=== PATIENT | female | born 2000 | race Caucasian/White ===

== ENCOUNTER 2021-11-15 01:54 | Emergency (ER) | payer OTHER ==
[2021-11-15 02:19] VITALS: TEMP 97.9
[2021-11-15] MEDS ORDERED: ONDANSETRON 4 MG/2 ML VIAL IVP STA (02:41)
[2021-11-15] MEDS ORDERED: SODIUM CHLORIDE 0.9% 1,000 ML IV STA (02:41)
[2021-11-15] MEDS ORDERED: MORPHINE SULFATE 4 MG/ML SYRINGE IV STA (02:41)
--- NOTE | 2021-11-15 02:46 | ED ---
General Adult HPI - General Chief complaint: Abdominal Pain Stated complaint: LRQ Abd Pain Time Seen by Provider: 11/15/21 02:35 Source: patient, RN notes reviewed, old records reviewed Mode of arrival: ambulatory - History of Present Illness Initial comments: 21-year-old female presents with right-sided abdominal pain since 4:30 yesterday afternoon. Patient states that pain seems. Sharp in nature in the middle of the night waking her. She states that she has nausea but no vomiting. She is having diarrhea recently had a cholecystectomy last month and was told that would be normal. She denies any dysuria bleeding or discharge -: hour(s) (10) Location: abdomen (right upper and lower ) Radiation: non-radiation Severity scale (1-10): 8 Quality: stabbing, sharp Consistency: intermittent Improves with: none Associated Symptoms: nausea/vomiting (no vomiting) - Related Data Allergies Allergy/AdvReac Type Severity Reaction Status Date / Time sulfamethoxazole Allergy Unknown Verified 11/15/21 02:19 [From Bactrim] Childhood trimethoprim [From Bactrim] Allergy Unknown Verified 11/15/21 02:19 Childhood methylphenidate AdvReac Rapid Verified 11/15/21 02:19 [From Concerta] Heart Rate Review of Systems ROS Statement: Those systems with pertinent positive or pertinent negative responses have been documented in the HPI. ROS Other: All systems not noted in ROS Statement are negative. Past Medical History Past Medical History: No Reported History History of Any Multi-Drug Resistant Organisms: None Reported Past Surgical History: Section, Cholecystectomy Additional Past Surgical History / Comment(s): c section x 2 and reconstructive surgery on her uterus. Past Psychological History: No Psychological Hx Reported Smoking Status: Never smoker Past Alcohol Use History: None Reported Past Drug Use History: None Reported General Exam General appearance: alert, in no apparent distress Head exam: Present: atraumatic Eye exam: Absent: scleral icterus, conjunctival injection Respiratory exam: Present: normal lung sounds bilaterally. Absent: respiratory distress, accessory muscle use Cardiovascular Exam: Present: regular rate. Absent: JVD GI/Abdominal exam: Present: soft, tenderness (Right upper and right lower quadrant), other (Cholecystectomy incisions intact with no erythema or drainage). Absent: distended Extremities exam: Present: normal inspection, normal capillary refill. Absent: pedal edema Back exam: Present: normal inspection, full ROM. Absent: tenderness, CVA tenderness (R), CVA tenderness (L), rash noted Neurological exam: Present: alert, oriented X3 Psychiatric exam: Present: normal affect, normal mood Skin exam: Present: warm, dry, intact, normal color. Absent: rash, cyanosis, diaphoretic, pallor Course Vital Signs 11/15/21 02:14 Temperature 97.9 F Pulse Rate 97 Respiratory 19 Rate Blood Pressure 113/71 O2 Sat by Pulse 98 Oximetry Medical Decision Making - Medical Decision Making Patient presents with right-sided abdominal pain that started yesterday afternoon. She underwent a cholecystectomy one month ago at [facility]. She denies any fevers, nausea, vomiting or diarrhea. There is no evidence of leukocytosis. Hemoglobin and hematocrit are stable electrolytes are unremarkable. No lactic acidosis. No UTI and no evidence of . Abdominal x-ray shows nonacute abdomen, no intestinal obstruction or pneumoperitoneum. Cholecystectomy clips are noted. Patient was given IV fluids and morphine. She states that the pain is improved. Upon reassessment abdomen remains soft and minimally tender in the right upper quadrant. I feel the patient is stable for discharge. She was given strict return parameters to return if fevers, increasing pain, persistent nausea vomiting. She is agreeable to this plan of care. Case discussed with Dr. Rock. Vital signs are stable. - Lab Data Result diagrams: 11/15/21 02:59 11/15/21 02:59 Lab Results 11/15/21 11/15/21 11/15/21 Range/Units 02:59 02:59 02:59 WBC 8.9 (3.8-10.6) k/uL RBC 4.64 (3.80-5.40) m/uL Hgb 13.4 (11.4-16.0) gm/dL Hct 41.3 (34.0-46.0) % MCV 89.0 (80.0-100.0) fL MCH 28.8 (25.0-35.0) pg MCHC 32.4 (31.0-37.0) g/dL RDW 12.6 (11.5-15.5) % Plt Count 300 (150-450) k/uL MPV 6.7 Neutrophils % 61 % Lymphocytes % 25 % Monocytes % 6 % Eosinophils % 5 % Basophils % 1 % Neutrophils # 5.5 (1.3-7.7) k/uL Lymphocytes # 2.2 (1.0-4.8) k/uL Monocytes # 0.6 (0-1.0) k/uL Eosinophils # 0.5 (0-0.7) k/uL Basophils # 0.1 (0-0.2) k/uL Sodium 137 (137-145) mmol/L Potassium 3.6 (3.5-5.1) mmol/L Chloride 106 (98-107) mmol/L Carbon Dioxide 24 (22-30) mmol/L Anion Gap 7 mmol/L BUN 9 (7-17) mg/dL Creatinine 0.56 (0.52-1.04) mg/dL Est GFR (CKD-EPI)AfAm >90 (>60 ml/min/1.73 sqM) Est GFR (CKD-EPI)NonAf >90 (>60 ml/min/1.73 sqM) Glucose 99 (74-99) mg/dL Plasma Lactic Acid Damian (0.7-2.0) mmol/L Calcium 8.4 (8.4-10.2) mg/dL Total Bilirubin 0.5 (0.2-1.3) mg/dL AST 19 (14-36) U/L ALT 19 (4-34) U/L Alkaline Phosphatase 57 (38-126) U/L Total Protein 6.4 (6.3-8.2) g/dL Albumin 3.7 (3.5-5.0) g/dL Amylase 40 (30-110) U/L Lipase 94 (23-300) U/L Urine Color Yellow Urine Appearance Cloudy H (Clear) Urine pH 6.5 (5.0-8.0) Ur Specific [place] 1.022 (1.001-1.035) Urine Protein Negative (Negative) Urine Glucose (UA) Negative (Negative) Urine Ketones Negative (Negative) Urine Blood Negative (Negative) Urine Nitrite Negative (Negative) Urine Bilirubin Negative (Negative) Urine Urobilinogen <2.0 (<2.0) mg/dL Ur Leukocyte Esterase Trace H (Negative) Urine RBC 1 (0-5) /hpf Urine WBC 3 (0-5) /hpf Ur Squamous Epith Cells 25 H (0-4) /hpf Urine Bacteria Rare H (None) /hpf Urine Mucus Rare H (None) /hpf Urine HCG, Qual (Not Detectd) 11/15/21 11/15/21 Range/Units 02:59 02:59 WBC (3.8-10.6) k/uL RBC (3.80-5.40) m/uL Hgb (11.4-16.0) gm/dL Hct (34.0-46.0) % MCV (80.0-100.0) fL MCH (25.0-35.0) pg MCHC (31.0-37.0) g/dL RDW (11.5-15.5) % Plt Count (150-450) k/uL MPV Neutrophils % % Lymphocytes % % Monocytes % % Eosinophils % % Basophils % % Neutrophils # (1.3-7.7) k/uL Lymphocytes # (1.0-4.8) k/uL Monocytes # (0-1.0) k/uL Eosinophils # (0-0.7) k/uL Basophils # (0-0.2) k/uL Sodium (137-145) mmol/L Potassium (3.5-5.1) mmol/L Chloride (98-107) mmol/L Carbon Dioxide (22-30) mmol/L Anion Gap mmol/L BUN (7-17) mg/dL Creatinine (0.52-1.04) mg/dL Est GFR (CKD-EPI)AfAm (>60 ml/min/1.73 sqM) Est GFR (CKD-EPI)NonAf (>60 ml/min/1.73 sqM) Glucose (74-99) mg/dL Plasma Lactic Acid Damian 0.7 (0.7-2.0) mmol/L Calcium (8.4-10.2) mg/dL Total Bilirubin (0.2-1.3) mg/dL AST (14-36) U/L ALT (4-34) U/L Alkaline Phosphatase (38-126) U/L Total Protein (6.3-8.2) g/dL Albumin (3.5-5.0) g/dL Amylase (30-110) U/L Lipase (23-300) U/L Urine Color Urine Appearance (Clear) Urine pH (5.0-8.0) Ur Specific [place] (1.001-1.035) Urine Protein (Negative) Urine Glucose (UA) (Negative) Urine Ketones (Negative) Urine Blood (Negative) Urine Nitrite (Negative) Urine Bilirubin (Negative) Urine Urobilinogen (<2.0) mg/dL Ur Leukocyte Esterase (Negative) Urine RBC (0-5) /hpf Urine WBC (0-5) /hpf Ur Squamous Epith Cells (0-4) /hpf Urine Bacteria (None) /hpf Urine Mucus (None) /hpf Urine HCG, Qual Not Detected (Not Detectd) Disposition Clinical Impression: Abdominal pain Disposition: HOME SELF-CARE Condition: Good Instructions (If sedation given, give patient instructions): Abdominal Pain (ED) Additional Instructions: Return to the emergency room with any new or worsening symptoms including increased right lower quadrant abdominal pain, fevers, persistent nausea or vomiting. Follow-up with your primary care doctor next week. Increase your fluid intake. You can try Gas-X in addition to Tylenol and Motrin for your pain. Is patient prescribed a controlled substance at d/c from ED?: No Referrals: Nonstaff,Physician [Primary Care Provider] - 1-2 days Time of Disposition: 03:53
[2021-11-15 03:08] LABS: Basophils # (A) 0.1 k/uL (0-0.2); Basophils % (A) 1 %; Eosinophils # (A) 0.5 k/uL (0-0.7); Eosinophils % (A) 5 %; HCT 41.3 % (34.0-46.0); HGB 13.4 gm/dL (11.4-16.0); Lymphocytes # (A) 2.2 k/uL (1.0-4.8); Lymphocytes % (A) 25 %; MCH 28.8 pg (25.0-35.0); MCHC 32.4 g/dL (31.0-37.0); Mean Platelet Volume 6.7; Monocytes # (A) 0.6 k/uL (0-1.0); Monocytes % (A) 6 %; Neutrophils # (A) 5.5 k/uL (1.3-7.7); Neutrophils % (A) 61 %; Platelet Count 300 k/uL (150-450); RBC 4.64 m/uL (3.80-5.40); RDW 12.6 % (11.5-15.5); WBC 8.9 k/uL (3.8-10.6)
--- NOTE | 2021-11-15 03:12 | XR ---
EXAMINATION TYPE: XR KUB DATE OF EXAM: 11/15/2021 COMPARISON: NONE HISTORY: Right lower quadrant pain TECHNIQUE: 2 views Upright FINDINGS: Bowel gas pattern is normal. There is no sign of intestinal obstruction or pneumoperitoneum . There are clips from cholecystectomy. Lung bases are clear. There are no pathologic calcifications. IMPRESSION: Acute abdomen.
[2021-11-15 03:17] LABS: Appearance,Urine Cloudy (Clear); Bacteria,Urine Rare /hpf; Bilirubin,Urine Negative (Negative); Blood,Urine Negative (Negative); Color,Urine Yellow; Glucose,Urine (UA) Negative (Negative); Ketones,Urine Negative (Negative); Leukocyte Esterase,Urine Trace (Negative); Mucus,Urine Rare /hpf; Nitrite,Urine Negative (Negative); PH, Urine 6.5 (5.0-8.0); Protein,Urine Negative (Negative); RBC,Urine 1 /hpf (0-5); Specific Gravity,Urine 1.022 (1.001-1.035); Squamous Epithelial Cell,Urine 25 /hpf (0-4); Urobilinogen,Urine <2.0 mg/dL (<2.0); WBC,Urine 3 /hpf (0-5)
[2021-11-15 03:37] LABS: ALT 19 U/L (4-34); AST 19 U/L (14-36); African American GFR (CKD) >90 (>60 ml/min/1.73 sqM); Albumin 3.7 g/dL (3.5-5.0); Alkaline Phosphatase 57 U/L (38-126); Amylase 40 U/L (30-110); Anion Gap 7 mmol/L; Blood Urea Nitrogen 9 mg/dL (7-17); Calcium 8.4 mg/dL (8.4-10.2); Carbon Dioxide 24 mmol/L (22-30); Chloride 106 mmol/L (98-107); Glucose 99 mg/dL (74-99); Lipase 94 U/L (23-300); Non-African American GFR(CKD) >90 (>60 ml/min/1.73 sqM); Potassium 3.6 mmol/L (3.5-5.1); Sodium 137 mmol/L (137-145); Total Bilirubin 0.5 mg/dL (0.2-1.3); Total Protein 6.4 g/dL (6.3-8.2)
[2021-11-15] MEDS ORDERED: SIMETHICONE 80 MG CHEWABLE PO STA (03:46)
[2021-11-15 04:07] VITALS: RESP 18
[2021-11-15 04:25] VITALS: BP 113/74; PULSE 91
== END 2021-11-15 04:29 | disposition home or self-care (01) ==
LOC: EC 01:54
DX: R10.31 Right lower quadrant pain (principal); R10.11 Right upper quadrant pain; Z88.2 Allergy status to sulfonamides; Z88.1 Allergy status to other antibiotic agents; Z90.49 Acquired absence of other specified parts of digestive tract
CPT/HCPCS: 99284; 96374; 96375; 96361; 36415; 80053; 82150; 83605; 83690; 85025; 81001; 81025; 74018; J2270; J2405

== ENCOUNTER 2022-02-24 18:52 | Inpatient (IN) | payer MEDICAID, OTHER ==
[2022-02-24 20:23] LABS: Amphetamine Screen,Urine Not Detected (NotDetected); Barbiturate Screen,Urine Not Detected (NotDetected); Benzodiazepines Screen,Urine Not Detected (NotDetected); Cocaine Screen,Urine Not Detected (NotDetected); Methadone Screen, Urine Not Detected (NotDetected); Opiate Screen,Urine Not Detected (NotDetected); Oxycodone Screen, Urine Not Detected (NotDetected); Phencyclidine Screen,Urine Not Detected (NotDetected); Tricyclic Antidepressant,Urine Not Detected (NotDetected); Urn Cannabinoid Scrn Not Detected (NotDetected)
--- NOTE | 2022-02-24 20:28 | ED ---
Psych HPI - General Chief Complaint: Psychiatric Symptoms Stated Complaint: mental alon Time Seen by Provider: 02/24/22 19:28 Source: patient, family, RN notes reviewed Mode of arrival: ambulatory - History of Present Illness Initial Comments: 21-year-old female with a history depression who resents tonight with complaints of feeling depressed she denies any suicidal thoughts or ideation though she did cut herself several days ago on the right forearm. He states he depressed her mother at the age of 10 and a grandmother just within the last 6 months with her caregiver. She having trouble coping with this. He denies any drugs or alcohol complains modifying factors or tetanus shots are up-to-date. MD Complaint: feels depressed - Related Data Allergies Allergy/AdvReac Type Severity Reaction Status Date / Time levofloxacin [From Levaquin] Allergy Rapid Verified 02/24/22 19:20 Heart Rate sulfamethoxazole Allergy Unknown Verified 11/15/21 02:19 [From Bactrim] Childhood trimethoprim [From Bactrim] Allergy Unknown Verified 11/15/21 02:19 Childhood methylphenidate AdvReac Rapid Verified 11/15/21 02:19 [From Concerta] Heart Rate Review of Systems ROS Statement: Those systems with pertinent positive or pertinent negative responses have been documented in the HPI. ROS Other: All systems not noted in ROS Statement are negative. Past Medical History Past Medical History: No Reported History History of Any Multi-Drug Resistant Organisms: None Reported Past Surgical History: Section, Cholecystectomy Additional Past Surgical History / Comment(s): c section x 2 and reconstructive surgery on her uterus. Past Psychological History: No Psychological Hx Reported, ADD/ADHD, Anxiety, Depression Smoking Status: Never smoker Past Alcohol Use History: None Reported Past Drug Use History: None Reported General Exam - General Exam Comments Initial Comments: This is a well-developed well-nourished awake alert oriented 3 female Limitations: no limitations General appearance: alert, in no apparent distress Head exam: Present: atraumatic, normocephalic, normal inspection Eye exam: Present: normal appearance, PERRL, EOMI. Absent: scleral icterus, conjunctival injection, periorbital swelling ENT exam: Present: normal exam, mucous membranes moist Neck exam: Present: normal inspection. Absent: tenderness, meningismus, lymphadenopathy Respiratory exam: Present: normal lung sounds bilaterally. Absent: respiratory distress, wheezes, rales, rhonchi, stridor Cardiovascular Exam: Present: regular rate, normal rhythm, normal heart sounds, other (Normal heart rate on my exam). Absent: systolic murmur, diastolic murmur, rubs, gallop, clicks GI/Abdominal exam: Present: soft, normal bowel sounds. Absent: distended, tenderness, guarding, rebound, rigid Extremities exam: Present: full ROM, normal capillary refill, other (Well-healed transverse linear lesions on the right volar forearm). Absent: tenderness, pedal edema, joint swelling, calf tenderness Back exam: Present: normal inspection Neurological exam: Present: alert, oriented X3, CN II-XII intact Psychiatric exam: Present: depressed, flat affect. Absent: suicidal ideation Skin exam: Present: warm, dry, intact, normal color. Absent: rash Course Vital Signs 02/24/22 19:16 Temperature 98 F Pulse Rate 116 H Respiratory 18 Rate Blood Pressure 109/63 O2 Sat by Pulse 99 Oximetry Medical Decision Making - Medical Decision Making Patient was evaluated by the EPS service will be admitted for inpatient evaluation treatment of depression - Lab Data Lab Results 02/24/22 02/24/22 02/24/22 Range/Units 19:41 19:41 19:41 Urine HCG, Qual Not Detected (Not Detectd) Urine Opiates Screen Not Detected (NotDetected) Ur Oxycodone Screen Not Detected (NotDetected) Urine Methadone Screen Not Detected (NotDetected) Ur Propoxyphene Screen Not Detected (NotDetected) Ur Barbiturates Screen Not Detected (NotDetected) U Tricyclic Antidepress Not Detected (NotDetected) Ur Phencyclidine Scrn Not Detected (NotDetected) Ur Amphetamines Screen Not Detected (NotDetected) U Methamphetamines Scrn Not Detected (NotDetected) U Benzodiazepines Scrn Not Detected (NotDetected) Urine Cocaine Screen Not Detected (NotDetected) U Marijuana (THC) Screen Not Detected (NotDetected) Coronavirus (PCR) Not Detected (Not Detectd) Disposition Clinical Impression: Depression Disposition: TRANSFER TO PSYCH HOSP/UNIT Condition: Stable Referrals: Nonstaff,Physician [Primary Care Provider] - 1-2 days Decision Date: 02/24/22 Decision Time: 20:59
[2022-02-24] MEDS ORDERED: MAG HYDROX/AL HYDROX/SIMETH 30 ML CUP PO PRN (23:14)
[2022-02-24] MEDS ORDERED: ACETAMINOPHEN TAB 325 MG TAB PO PRN (23:14)
[2022-02-24] MEDS ORDERED: MAGNESIUM HYDROXIDE 2,400 MG/10 ML CUP PO PRN (23:14)
[2022-02-24] MEDS ORDERED: hydrOXYzine HCL 50 MG/ML 1 ML VIAL IM PRN (23:16)
[2022-02-24] MEDS ORDERED: hydrOXYzine pamoate 25 MG CAP PO PRN (23:16)
[2022-02-24] MEDS ORDERED: OLANZapine 10 MG VIAL IM PRN (23:16)
[2022-02-24] MEDS ORDERED: OLANZapine 5 MG TAB PO PRN (23:16)
[2022-02-25] MEDS ORDERED: diphenhydrAMINE 25 MG CAP PO STA (01:14)
[2022-02-25 01:39] LABS: Appearance,Urine Turbid (Clear); Bacteria,Urine Many /hpf; Bilirubin,Urine Negative (Negative); Blood,Urine Large (Negative); Calcium Oxalate Crystals,Urine Occasional /hpf; Color,Urine Yellow; Glucose,Urine (UA) Negative (Negative); Ketones,Urine Negative (Negative); Leukocyte Esterase,Urine Small (Negative); Mucus,Urine Moderate /hpf; Nitrite,Urine Negative (Negative); PH, Urine 5.5 (5.0-8.0); Protein,Urine Trace (Negative); RBC,Urine 1 /hpf (0-5); Specific Gravity,Urine 1.023 (1.001-1.035); Squamous Epithelial Cell,Urine 18 /hpf (0-4); Urobilinogen,Urine <2.0 mg/dL (<2.0); WBC,Urine 15 /hpf (0-5)
[2022-02-25 08:10] LABS: Basophils % (A) 0 %; Eosinophils # (A) 0.2 k/uL (0-0.7); Eosinophils % (A) 3 %; HCT 43.3 % (34.0-46.0); Lymphocytes # (A) 2.5 k/uL (1.0-4.8); Lymphocytes % (A) 29 %; MCH 28.6 pg (25.0-35.0); MCHC 32.3 g/dL (31.0-37.0); MCV 88.7 fL (80.0-100.0); Mean Platelet Volume 6.6; Monocytes # (A) 0.5 k/uL (0-1.0); Monocytes % (A) 6 %; Neutrophils # (A) 5.3 k/uL (1.3-7.7); Neutrophils % (A) 61 %; Platelet Count 400 k/uL (150-450); RBC 4.88 m/uL (3.80-5.40); WBC 8.7 k/uL (3.8-10.6)
[2022-02-25 08:31] LABS: ALT 16 U/L (4-34); AST 19 U/L (14-36); African American GFR (CKD) >90 (>60 ml/min/1.73 sqM); Albumin 3.9 g/dL (3.5-5.0); Alkaline Phosphatase 62 U/L (38-126); Anion Gap 6 mmol/L; Bilirubin, Delta 0.2 mg/dL (0.0-0.2); Bilirubin,Unconjugated 0.4 mg/dL (0.0-1.1); Blood Urea Nitrogen 6 mg/dL (7-17); Calcium 8.7 mg/dL (8.4-10.2); Carbon Dioxide 25 mmol/L (22-30); Chloride 107 mmol/L (98-107); Glucose 89 mg/dL (74-99); Non-African American GFR(CKD) >90 (>60 ml/min/1.73 sqM); Sodium 138 mmol/L (137-145); Total Bilirubin 0.6 mg/dL (0.2-1.3); Total Protein 6.7 g/dL (6.3-8.2)
[2022-02-25] MEDS: NICOTINE 14MG/24HR PATCH TRANSDERM SCH (09:03)
[2022-02-25] MEDS: SERTRALINE 50 MG TAB PO SCH (11:40)
--- NOTE | 2022-02-25 12:39 | P.HP ---
Psychiatric H&P - . H&P Date: 02/25/22 History & Physical: Allergies Allergy/AdvReac Type Severity Reaction Status Date / Time levofloxacin From Levaquin Allergy Rapid Verified 02/24/22 21:11 Heart Rate sulfamethoxazole Allergy Unknown Verified 02/24/22 21:11 From Bactrim Childhood trimethoprim From Bactrim Allergy Unknown Verified 02/24/22 21:11 Childhood methylphenidate AdvReac Rapid Verified 02/24/22 21:11 From Concerta Heart Rate Vital Signs Temp 98.1 F 02/25/22 09:36 Pulse 93 02/25/22 09:36 Resp 16 02/25/22 09:36 BP 131/63 02/25/22 09:36 Pulse Ox 99 02/25/22 09:36 FiO2 Intake & Output 02/24/22 02/25/22 02/25/22 18:59 06:59 18:59 Weight 97.125 kg Laboratory Last Values WBC 8.7 k/uL (3.8-10.6) 02/25/22 07:15 RBC 4.88 m/uL (3.80-5.40) 02/25/22 07:15 Hgb 14.0 gm/dL (11.4-16.0) 02/25/22 07:15 Hct 43.3 % (34.0-46.0) 02/25/22 07:15 MCV 88.7 fL (80.0-100.0) 02/25/22 07:15 MCH 28.6 pg (25.0-35.0) 02/25/22 07:15 MCHC 32.3 g/dL (31.0-37.0) 02/25/22 07:15 RDW 13.0 % (11.5-15.5) 02/25/22 07:15 Plt Count 400 k/uL (150-450) 02/25/22 07:15 MPV 6.6 02/25/22 07:15 Neutrophils % 61 % 02/25/22 07:15 Lymphocytes % 29 % 02/25/22 07:15 Monocytes % 6 % 02/25/22 07:15 Eosinophils % 3 % 02/25/22 07:15 Basophils % 0 % 02/25/22 07:15 Neutrophils # 5.3 k/uL (1.3-7.7) 02/25/22 07:15 Lymphocytes # 2.5 k/uL (1.0-4.8) 02/25/22 07:15 Monocytes # 0.5 k/uL (0-1.0) 02/25/22 07:15 Eosinophils # 0.2 k/uL (0-0.7) 02/25/22 07:15 Basophils # 0.0 k/uL (0-0.2) 02/25/22 07:15 Sodium 138 mmol/L (137-145) 02/25/22 07:15 Potassium 4.0 mmol/L (3.5-5.1) 02/25/22 07:15 Chloride 107 mmol/L (98-107) 02/25/22 07:15 Carbon Dioxide 25 mmol/L (22-30) 02/25/22 07:15 Anion Gap 6 mmol/L 02/25/22 07:15 BUN 6 mg/dL (7-17) L 02/25/22 07:15 Creatinine 0.63 mg/dL (0.52-1.04) 02/25/22 07:15 Est GFR (CKD-EPI)AfAm >90 (>60 ml/min/1.73 sqM) 02/25/22 07:15 Est GFR (CKD-EPI)NonAf >90 (>60 ml/min/1.73 sqM) 02/25/22 07:15 Glucose 89 mg/dL (74-99) 02/25/22 07:15 Calcium 8.7 mg/dL (8.4-10.2) 02/25/22 07:15 Total Bilirubin 0.6 mg/dL (0.2-1.3) 02/25/22 07:15 Conjugated Bilirubin 0.0 mg/dL (0.0-0.3) 02/25/22 07:15 Unconjugated Bilirubin 0.4 mg/dL (0.0-1.1) 02/25/22 07:15 Delta Bilirubin 0.2 mg/dL (0.0-0.2) 02/25/22 07:15 AST 19 U/L (14-36) 02/25/22 07:15 ALT 16 U/L (4-34) 02/25/22 07:15 Alkaline Phosphatase 62 U/L (38-126) 02/25/22 07:15 Total Protein 6.7 g/dL (6.3-8.2) 02/25/22 07:15 Albumin 3.9 g/dL (3.5-5.0) 02/25/22 07:15 TSH 1.820 mIU/L (0.465-4.680) 02/25/22 07:15 Urine Color Yellow 02/24/22 19:41 Urine Appearance Turbid (Clear) H 02/24/22 19:41 Urine pH 5.5 (5.0-8.0) 02/24/22 19:41 Ur Specific [place] 1.023 (1.001-1.035) 02/24/22 19:41 Urine Protein Trace (Negative) H 02/24/22 19:41 Urine Glucose (UA) Negative (Negative) 02/24/22 19:41 Urine Ketones Negative (Negative) 02/24/22 19:41 Urine Blood Large (Negative) H 02/24/22 19:41 Urine Nitrite Negative (Negative) 02/24/22 19:41 Urine Bilirubin Negative (Negative) 02/24/22 19:41 Urine Urobilinogen <2.0 mg/dL (<2.0) 02/24/22 19:41 Ur Leukocyte Esterase Small (Negative) H 02/24/22 19:41 Urine RBC 1 /hpf (0-5) 02/24/22 19:41 Urine WBC 15 /hpf (0-5) H 02/24/22 19:41 Ur Squamous Epith Cells 18 /hpf (0-4) H 02/24/22 19:41 Calcium Oxalate Crystal Occasional /hpf (None) H 02/24/22 19:41 Urine Bacteria Many /hpf (None) H 02/24/22 19:41 Urine Mucus Moderate /hpf (None) H 02/24/22 19:41 Urine HCG, Qual Not Detected (Not Detectd) 02/24/22 19:41 Urine Opiates Screen Not Detected (NotDetected) 02/24/22 19:41 Ur Oxycodone Screen Not Detected (NotDetected) 02/24/22 19:41 Urine Methadone Screen Not Detected (NotDetected) 02/24/22 19:41 Ur Propoxyphene Screen Not Detected (NotDetected) 02/24/22 19:41 Ur Barbiturates Screen Not Detected (NotDetected) 02/24/22 19:41 U Tricyclic Antidepress Not Detected (NotDetected) 02/24/22 19:41 Ur Phencyclidine Scrn Not Detected (NotDetected) 02/24/22 19:41 Ur Amphetamines Screen Not Detected (NotDetected) 02/24/22 19:41 U Methamphetamines Scrn Not Detected (NotDetected) 02/24/22 19:41 U Benzodiazepines Scrn Not Detected (NotDetected) 02/24/22 19:41 Urine Cocaine Screen Not Detected (NotDetected) 02/24/22 19:41 U Marijuana (THC) Screen Not Detected (NotDetected) 02/24/22 19:41 Coronavirus (PCR) Not Detected (Not Detectd) 02/24/22 19:41 02/25/22 10:39 IDENTIFYING DATA: Patient is a 21-year-old female, who is currently engaged, lives with her fianc and 2 kids. Unemployed. HPI: Patient presented to the hospital yesterday with thoughts of depression and claims that she cut herself several days ago. Patient was admitted voluntarily to the mental health unit. She has a negative urine drug screen. Patient was seen today and agreeable to speak to headline writer. She states that she is feeling depressed and anxious lately. She claims that she has been dealing with complicated grief regarding her passing away of her grandmother. She states that she was her main caregiver. She claims that she about 6 months ago. She states that she was supposed to walk her down the aisle during her wedding. She claims that she is also having stress related to planning her wedding which is in 20 days. She states that she also has her youngest kid was autism who his she has been taking care of at home. She claims that 2 weeks ago she cut herself with a razor blade. She states that her sleep and appetite of an fairly poor. She denies any history of manic symptoms in the past. Patient denies any current suicidal or homicidal ideations intent or plan. At this time patient denies any auditory or visual hallucinations. Patient denies any flight of ideas racing thoughts and increased in goal directed behavior. Patient admits to using now recreational drugs or cigarettes PAST PSYCHIATRIC HISTORY: Patient states that she has a history of depression and anxiety. Patient denies being on any psychiatric medications. She claims that she was hospitalized a couple of times in the past and most previously was at [facility] in 2012. Patient denies any psychiatric outpatient follow-up. She claims that she overdosed on pills at the age of [age] years old PMH:denies ALLERGIES: as per EMR CHEMICAL DEPENDENCY HISTORY: as per HPI FAMILY PSYCHIATRIC/SUBSTANCE USE HISTORY: Pepe that her mother had bipolar disorder and father was an alcoholic SOCIAL HISTORY: Patient was born and raised in [facility] and also in [place]. She states that she completed up to the 10th grade in school. She states that she is currently on probation for domestic violence charges against her. She states that she is currently living with her fianc is engaged. She states that she has 2 kids. She is unemployed. MENTAL STATUS EXAM: General Appearance: Patient appears to be overweight, red hair, stated age is alert, directable, and attempts to cooperate. Patient appears to have poor hygiene and grooming. Behavior: Patient is seated without any agitated behavior. Speech: Patient's speech is fluent and nonpressured. Soft tone of voice. Mood/Affect: Patient reports their mood is depressed and anxious, affect is congruent and constricted. Suicidality/Homicidality: Patient denies having any homicidal ideation intent or plan. Denies any suicidal ideations intent or plan Perceptions: Patient denies any visual hallucinations and denies any auditory hallucinations Though content/process: There is no evidence of any delusional thought content and thought process is linear and goal-directed. Focused on her stressors Memory and concentration: AOX3, grossly intact for the purposes of this session. Can spell "WORLD" backwards Judgment and insight: poor STRENGTHS/WEAKNESSES: strength is that patient is resilient. Weakness is that patient has poor judgment and is impulsive INTELLECT: average IMPRESSIONS: Major depressive disorder, severe without psychotic features Anxiety disorder unspecified PLAN: -Patient is admitted under voluntary status to MHU for stabilization of psychiatric symptoms and safety. Patient has signed adult voluntary form and medication consent and is placed in patient's chart. -Medications : Will start patient on Zoloft 50 mg daily for mood/anxiety, Benadryl 25 mg daily at bedtime for sleep. -zyprexa and vistaril PRN for agitation/aggression -Patient was informed of the risks, benefits and side effects of the medication and patient verbally consented to taking the medications. Patient signed med consent form and was placed in chart. -Internal Medicine consult to perform medical evaluation and physical. -NRT - not needed as patient does not smoke -SW on board for discharge planning. Encourage patient to participate in groups to work on coping skills. [] 02/25/22 12:33 02/25/22 12:39
[2022-02-25 14:38] LABS: Chol/HDL Ratio 3.48 Ratio; LDL Cholesterol,Calculated 48.7 mg/dL (0.0-131.0)
[2022-02-25] MEDS: diphenhydrAMINE 25 MG CAP PO SCH (22:03)
--- NOTE | 2022-02-26 03:55 | P.CONS ---
History of Present Illness - Reason for Consult Consult date: 02/25/22 - History of Present Illness The patient is a 21-year-old female with a PMH of anxiety and depression with presented to the emergency room seeking psychiatric evaluation. The patient was admitted to the mental health unit where she was seen and evaluated with the mental health unit RN Sharif. The patient reports that she is scheduled to be in the next few weeks, and that her grandmother who was supposed walker down violent , to which she has been having a difficult time dealing. She reports having a meltdown, at which time her boyfriend became concerned and after if she needs to be evaluated. Patient denied any physical complaints at the time of interview. She denied any chronic medical illnesses. Denied experiencing chest discomfort, shortness of fever, chills, cough, nausea, vomiting, abdominal pain, diarrhea. Denies tobacco, alcohol, or illicit substance use. Review of systems: Pertinent positives and negatives as discussed in HPI, a complete review of systems was performed and all other systems are negative. Physical examination: General: non toxic, no distress, appears at stated age, normal weight Derm: no unusual rashes/lesions, no unusual ecchymoses, warm, dry Head: atraumatic, normocephalic, symmetric Eyes: EOMI, no lid lag, anicteric sclera ENT: Nose and ears atraumatic, no thrush, no pharyngeal erythema Neck: trachea midline, supple Mouth: no lip lesion, mucus membranes moist Cardiovascular: S1S2 reg, no murmur, no edema Lungs: CTA bilateral, no rhonchi, no rales , no accessory muscle use Abdominal: soft, nontender to palpation, no guarding Ext: no gross muscle atrophy, no contractures, Neuro: No gross focal neuro deficits noted Psych: Alert, oriented, appropriate affect Assessment/plan Anxiety, depression -As per psychiatry Thank you for allowing us to participate in the care of this patient. We will follow peripherally. Do not hesitate to contact us with questions. Someone can be reached from the [facility] hospitalist group at all hours of the day at [phone]. Past Medical History Past Medical History: No Reported History History of Any Multi-Drug Resistant Organisms: None Reported Past Surgical History: Section, Cholecystectomy Additional Past Surgical History / Comment(s): c section x 2 and reconstructive surgery on her uterus. Past Psychological History: No Psychological Hx Reported, ADD/ADHD, Anxiety, Depression Smoking Status: Never smoker Past Alcohol Use History: None Reported Past Drug Use History: None Reported - Past Family History Mother Family Medical History: Cancer Medications and Allergies Home Medications Medication Instructions Recorded Confirmed Type diphenhydrAMINE HCL [Benadryl] 25 mg PO BID PRN 02/24/22 02/24/22 History Allergies Allergy/AdvReac Type Severity Reaction Status Date / Time levofloxacin [From Levaquin] Allergy Rapid Verified 02/24/22 21:11 Heart Rate sulfamethoxazole Allergy Unknown Verified 02/24/22 21:11 [From Bactrim] Childhood trimethoprim [From Bactrim] Allergy Unknown Verified 02/24/22 21:11 Childhood methylphenidate AdvReac Rapid Verified 02/24/22 21:11 [From Concerta] Heart Rate Physical Exam Vitals: Vital Signs Temp Pulse Pulse Resp BP BP Pulse Ox 02/25/22 09:36 98.1 F 93 16 131/63 99 02/25/22 01:08 98.2 F 89 17 111/64 99 02/25/22 00:00 98.4 F 78 16 114/67 98 Results CBC & Chem 7: 02/25/22 07:15 02/25/22 07:15 Labs: Abnormal Lab Results - Last 24 Hours (Table) 02/24/22 02/25/22 Range/Units 19:41 07:15 BUN 6 L (7-17) mg/dL HDL Cholesterol 26.80 L (40.00-60.00) mg/dL Urine Appearance Turbid H (Clear) Urine Protein Trace H (Negative) Urine Blood Large H (Negative) Ur Leukocyte Esterase Small H (Negative) Urine WBC 15 H (0-5) /hpf Ur Squamous Epith Cells 18 H (0-4) /hpf Calcium Oxalate Crystal Occasional H (None) /hpf Urine Bacteria Many H (None) /hpf Urine Mucus Moderate H (None) /hpf
[2022-02-26] MEDS: SERTRALINE 50 MG TAB PO SCH (08:52)
[2022-02-26] MEDS: NICOTINE 14MG/24HR PATCH TRANSDERM SCH (08:52)
[2022-02-26] MEDS: diphenhydrAMINE 25 MG CAP PO PRN (08:53)
--- NOTE | 2022-02-26 09:53 | P.PN ---
Subjective Progress Note Date: 02/26/22 Principal diagnosis: Major depression recurrent nonpsychotic Generalized anxiety disorder Subjective: Patient says she slept last night for the first time in a while, she went to 13 groups yesterday and found hope by hearing all the coping skills that if she developed would help her handle life stress. She realizes there'll be a lot of work to do to translate that into actual coping skills but she wants to try. She is positive about taking the medicine and understands that it will be sometime before works. She thinks it may have bothered her stomach slightly although it's not anything miserable. Objective sad affect quiet, cooperative, reasonable eye contact, no evidence of psychosis, alert, somewhat slow moving and slow responses. She was oriented to person place time and circumstance, seems committed to follow-up counseling. She says she went to counseling after her mom in no she needs to work on those skills to deal with grandma. Assessment patient seems to be getting some insight and hope still looks rather depressed but I can't increase the Zoloft as it is irritating her stomach slightly. That should adjust here in a day or so and we can increase it some. Plan no change in medicine at this time. Objective - Vital Signs Vital signs: Vital Signs Temp 98.2 F 02/26/22 07:02 Pulse 84 02/26/22 07:02 Resp 14 02/26/22 07:02 BP 107/56 02/26/22 07:02 Pulse Ox 99 02/25/22 09:36 FiO2 - Labs CBC & Chem 7: 02/25/22 07:15 02/25/22 07:15 Labs: Abnormal Lab Results - Last 24 Hours (Table) 02/25/22 Range/Units 07:15 HDL Cholesterol 26.80 L (40.00-60.00) mg/dL
[2022-02-26] MEDS: diphenhydrAMINE 25 MG CAP PO SCH (22:00)
[2022-02-27 07:04] VITALS: RESP 16
[2022-02-27] MEDS: SERTRALINE 50 MG TAB PO SCH (08:37)
[2022-02-27] MEDS: NICOTINE 14MG/24HR PATCH TRANSDERM SCH (08:38)
[2022-02-27] MEDS: diphenhydrAMINE 25 MG CAP PO PRN (08:42)
--- NOTE | 2022-02-27 11:45 | P.PN ---
Subjective Progress Note Date: 02/27/22 Principal diagnosis: Major depression recurrent nonpsychotic Generalized anxiety disorder Subjective: The patient says that the Zoloft bothered her stomach real bad the first day last the second day and seems to be clearing. She is feeling more hopeful and she used to think that counseling was a bad thing now she is committed to it and to the benefit of sharing with others. She said she was able to sleep fairly well last night. Objective: She seems to be making friends with others on the unit goes to the group stays out of her room chats with the other people she is alert good eye contact quite response is no signs of psychosis and is more hopeful. Assessment: She seems to be tolerating the medicine now so I don't think we need to change and I think she should continue with and work on discharge plans Plan no change in medication continue Zoloft 50 Objective - Vital Signs Vital signs: Vital Signs Temp 98.2 F 02/27/22 06:45 Pulse 82 02/27/22 06:45 Resp 16 02/27/22 06:45 BP 99/55 02/27/22 06:45 Pulse Ox 99 02/25/22 09:36 FiO2 Intake & Output 02/26/22 02/27/22 02/27/22 18:59 06:59 18:59 Weight 97.2 kg - Labs CBC & Chem 7: 02/25/22 07:15 02/25/22 07:15
[2022-02-27] MEDS: diphenhydrAMINE 25 MG CAP PO SCH (21:54)
[2022-02-28 06:56] VITALS: BP 113/60; PULSE 89; TEMP 98.6
[2022-02-28] MEDS: diphenhydrAMINE 25 MG CAP PO PRN (08:10)
[2022-02-28] MEDS: SERTRALINE 50 MG TAB PO SCH (08:10)
[2022-02-28] MEDS: CLOTRIMAZOLE 1% CREAM 30 GM TUBE TOPICAL SCH ×2 (08:11)
[2022-02-28] MEDS: NICOTINE 14MG/24HR PATCH TRANSDERM SCH (09:11)
--- NOTE | 2022-02-28 09:58 | P.DS ---
Providers Date of admission: 02/24/22 22:59 Expected date of discharge: 02/28/22 Attending physician: Monty Negrete MD Consults: 02/24/22 23:14 Consult Physician Routine Consulting Provider: Sarai Physician Consult Reason/Comments: Medical H&P Do you want consulting provider notified?: Yes Primary care physician: Physician Nonstaff - Discharge Diagnosis(es) (1) Major depressive disorder without psychotic features Current Visit: Yes Status: Acute Priority: High (2) Anxiety disorder Current Visit: Yes Status: Acute Priority: Medium Hospital Course: Admission HPI: Admission note was completed by software writer "Patient is a 21-year-old female, who is currently engaged, lives with her fianc and 2 kids. Unemployed. Patient presented to the hospital yesterday with thoughts of depression and claims that she cut herself several days ago. Patient was admitted voluntarily to the mental health unit. She has a negative urine drug screen. Patient was seen today and agreeable to speak to software writer. She states that she is feeling depressed and anxious lately. She claims that she has been dealing with complicated grief regarding her passing away of her grandmother. She states that she was her main caregiver. She claims that she about 6 months ago. She states that she was supposed to walk her down the aisle during her wedding. She claims that she is also having stress related to planning her wedding which is in 20 days. She states that she also has her youngest kid was autism who his she has been taking care of at home. She claims that 2 weeks ago she cut herself with a razor blade. She states that her sleep and appetite of an fairly poor. She denies any history of manic symptoms in the past. Patient denies any current suicidal or homicidal ideations intent or plan. At this time patient denies any auditory or visual hallucinations. Patient denies any flight of ideas racing thoughts and increased in goal directed behavior. Patient admits to using now recreational drugs or cigarettes" Hospital course: Upon admission to the unit patient was directable and agreeable to commence treatment and signed adult voluntary form . Patient got along well with other patients on the unit and followed unit protocol. Patient was compliant with the medications and denied any side effects throughout hospital course. Patient was started on Zoloft 50 mg daily for mood/anxiety, Benadryl 25 mg daily at bedtime for sleep. Patient spoke of her stressors and engaged in therapy both group and individual. Patient was also seen by medical team for history and physical exam. Throughout the course of the hospitalization patient gradually improved with regards to mood, anxiety, sleep and became more future oriented with improved insight and judgment. On the day of discharge patient denied any suicidal or homicidal ideations intent or plan denied any auditory or visual hallucinations. Patient endorsed wanting to live for her children and her future. The patient denied any access to guns or weapons. Patient denied any paranoia and did not endorse any delusions. Patient does not have a significant history of substance abuse and was counseled on abstaining from all substances including alcohol and marijuana. Patient was also counseled on the medications and need for regular compliance and was encouraged to follow-up with their outpatient appointment for mental health and also for primary care. Prior to discharge a family meeting will be arranged by social worker palliative care to answer any questions and ensure safety upon discharge. Mental status exam: General Appearance: Patient appears to be overweight, stated age is alert, pleasant, and cooperative. Patient is in no acute distress and has improved hygiene and grooming Behavior: Patient is calmly seated without any agitated behavior. Speech: Patient's speech is fluent and nonpressured. Mood/Affect: Patient reports their mood is "really good", affect is congruent and euthymic. Suicidality/Homicidality: Patient denies having any suicidal or homicidal ideation intent or plan. Perceptions: Patient denies any auditory or visual hallucinations. Though content/process: There is no evidence of any delusional thought content and thought process is linear and goal-directed. more future oriented Memory and concentration: AOX3, grossly intact for the purposes of this session. Can spell "WORLD" backwards correctly. Judgment and insight: improved with guarded prognosis Impression: Major depressive disorder, severe without psychotic features Anxiety disorder unspecified Plan: -Continue with discharge today as patient has improved and stabilized psychiatrically and is not currently an imminent threat to herself and/or others. -Continue medications: Zoloft 50 mg daily for mood/anxiety, Benadryl 25 mg daily at bedtime for insomnia. -Patient was counseled on the need for medication compliance and appropriate follow-up at mental health and also primary care for medical issues. Patient verbalized understanding and agreed. -Social work to arrange for and conduct family meeting to ensure safety upon discharge and answer any questions/concerns. Social work also to arrange for patients follow up appointments for psychiatric care along with follow up with primary care provider. -Patient counseled on abstaining from recreational drugs and marijuana and alcohol. Was informed/educated on the adverse effects on their physical and mental health. Patient verbally agreed and understood. -Patient was instructed to return to the hospital or seek immediate medical care if their psychiatric or medical symptoms do worsen or reoccur. Allergies Allergy/AdvReac Type Severity Reaction Status Date / Time levofloxacin [From Levaquin] Allergy Rapid Verified 02/24/22 21:11 Heart Rate sulfamethoxazole Allergy Unknown Verified 02/24/22 21:11 [From Bactrim] Childhood trimethoprim [From Bactrim] Allergy Unknown Verified 02/24/22 21:11 Childhood methylphenidate AdvReac Rapid Verified 02/24/22 21:11 [From Concerta] Heart Rate Laboratory Results WBC 8.7 k/uL (3.8-10.6) 02/25/22 07:15 RBC 4.88 m/uL (3.80-5.40) 02/25/22 07:15 Hgb 14.0 gm/dL (11.4-16.0) 02/25/22 07:15 Hct 43.3 % (34.0-46.0) 02/25/22 07:15 MCV 88.7 fL (80.0-100.0) 02/25/22 07:15 MCH 28.6 pg (25.0-35.0) 02/25/22 07:15 MCHC 32.3 g/dL (31.0-37.0) 02/25/22 07:15 RDW 13.0 % (11.5-15.5) 02/25/22 07:15 Plt Count 400 k/uL (150-450) 02/25/22 07:15 MPV 6.6 02/25/22 07:15 Neutrophils % 61 % 02/25/22 07:15 Lymphocytes % 29 % 02/25/22 07:15 Monocytes % 6 % 02/25/22 07:15 Eosinophils % 3 % 02/25/22 07:15 Basophils % 0 % 02/25/22 07:15 Neutrophils # 5.3 k/uL (1.3-7.7) 02/25/22 07:15 Lymphocytes # 2.5 k/uL (1.0-4.8) 02/25/22 07:15 Monocytes # 0.5 k/uL (0-1.0) 02/25/22 07:15 Eosinophils # 0.2 k/uL (0-0.7) 02/25/22 07:15 Basophils # 0.0 k/uL (0-0.2) 02/25/22 07:15 Sodium 138 mmol/L (137-145) 02/25/22 07:15 Potassium 4.0 mmol/L (3.5-5.1) 02/25/22 07:15 Chloride 107 mmol/L (98-107) 02/25/22 07:15 Carbon Dioxide 25 mmol/L (22-30) 02/25/22 07:15 Anion Gap 6 mmol/L 02/25/22 07:15 BUN 6 mg/dL (7-17) L 02/25/22 07:15 Creatinine 0.63 mg/dL (0.52-1.04) 02/25/22 07:15 Est GFR (CKD-EPI)AfAm >90 (>60 ml/min/1.73 sqM) 02/25/22 07:15 Est GFR (CKD-EPI)NonAf >90 (>60 ml/min/1.73 sqM) 02/25/22 07:15 Glucose 89 mg/dL (74-99) 02/25/22 07:[address] Glu mg/dL 103 02/25/22 07:15 Hemoglobin A1c 5.2 % (0.0-6.0) 02/25/22 07:15 Calcium 8.7 mg/dL (8.4-10.2) 02/25/22 07:15 Total Bilirubin 0.6 mg/dL (0.2-1.3) 02/25/22 07:15 Conjugated Bilirubin 0.0 mg/dL (0.0-0.3) 02/25/22 07:15 Unconjugated Bilirubin 0.4 mg/dL (0.0-1.1) 02/25/22 07:15 Delta Bilirubin 0.2 mg/dL (0.0-0.2) 02/25/22 07:15 AST 19 U/L (14-36) 02/25/22 07:15 ALT 16 U/L (4-34) 02/25/22 07:15 Alkaline Phosphatase 62 U/L (38-126) 02/25/22 07:15 Total Protein 6.7 g/dL (6.3-8.2) 02/25/22 07:15 Albumin 3.9 g/dL (3.5-5.0) 02/25/22 07:15 Triglycerides 89.00 mg/dL (0.00-149.00) 02/25/22 07:15 Cholesterol 93.00 mg/dL (0.00-200.00) 02/25/22 07:15 LDL Cholesterol, Calc 48.7 mg/dL (0.0-131.0) 02/25/22 07:15 VLDL Cholesterol, Calc 17.80 mg/dL (5.00-40.00) 02/25/22 07:15 HDL Cholesterol 26.80 mg/dL (40.00-60.00) L 02/25/22 07:15 Cholesterol/HDL Ratio 3.48 Ratio 02/25/22 07:15 TSH 1.820 mIU/L (0.465-4.680) 02/25/22 07:15 Urine Color Yellow 02/24/22 19:41 Urine Appearance Turbid (Clear) H 02/24/22 19:41 Urine pH 5.5 (5.0-8.0) 02/24/22 19:41 Ur Specific [place] 1.023 (1.001-1.035) 02/24/22 19:41 Urine Protein Trace (Negative) H 02/24/22 19:41 Urine Glucose (UA) Negative (Negative) 02/24/22 19:41 Urine Ketones Negative (Negative) 02/24/22 19:41 Urine Blood Large (Negative) H 02/24/22 19:41 Urine Nitrite Negative (Negative) 02/24/22 19:41 Urine Bilirubin Negative (Negative) 02/24/22 19:41 Urine Urobilinogen <2.0 mg/dL (<2.0) 02/24/22 19:41 Ur Leukocyte Esterase Small (Negative) H 02/24/22 19:41 Urine RBC 1 /hpf (0-5) 02/24/22 19:41 Urine WBC 15 /hpf (0-5) H 02/24/22 19:41 Ur Squamous Epith Cells 18 /hpf (0-4) H 02/24/22 19:41 Calcium Oxalate Crystal Occasional /hpf (None) H 02/24/22 19:41 Urine Bacteria Many /hpf (None) H 02/24/22 19:41 Urine Mucus Moderate /hpf (None) H 02/24/22 19:41 Urine HCG, Qual Not Detected (Not Detectd) 02/24/22 19:41 Urine Opiates Screen Not Detected (NotDetected) 02/24/22 19:41 Ur Oxycodone Screen Not Detected (NotDetected) 02/24/22 19:41 Urine Methadone Screen Not Detected (NotDetected) 02/24/22 19:41 Ur Propoxyphene Screen Not Detected (NotDetected) 02/24/22 19:41 Ur Barbiturates Screen Not Detected (NotDetected) 02/24/22 19:41 U Tricyclic Antidepress Not Detected (NotDetected) 02/24/22 19:41 Ur Phencyclidine Scrn Not Detected (NotDetected) 02/24/22 19:41 Ur Amphetamines Screen Not Detected (NotDetected) 02/24/22 19:41 U Methamphetamines Scrn Not Detected (NotDetected) 02/24/22 19:41 U Benzodiazepines Scrn Not Detected (NotDetected) 02/24/22 19:41 Urine Cocaine Screen Not Detected (NotDetected) 02/24/22 19:41 U Marijuana (THC) Screen Not Detected (NotDetected) 02/24/22 19:41 Coronavirus (PCR) Not Detected (Not Detectd) 02/24/22 19:41 Vital Signs Temp 98.6 F 02/28/22 06:30 Pulse 89 02/28/22 06:30 Resp 16 02/28/22 06:30 BP 113/60 02/28/22 06:30 Pulse Ox 99 02/25/22 09:36 FiO2 Intake & Output 02/27/22 02/28/22 02/28/22 18:59 06:59 18:59 Weight 97.2 kg Patient Condition at Discharge: Stable Plan - Discharge Summary Discharge Rx Participant: No New Discharge Prescriptions: New diphenhydrAMINE [Benadryl] 25 mg PO HS 30 Days cap Nicotine 14Mg/24Hr Patch [Habitrol] 1 patch TRANSDERM DAILY 14 Days patch Clotrimazole Cream [Lotrimin Cream] 1 applic TOPICAL BID each Sertraline [Zoloft] 50 mg PO DAILY 30 Days tab Discontinued diphenhydrAMINE HCL [Benadryl] 25 mg PO BID PRN PRN Reason: Allergy Symptoms Discharge Medication List Clotrimazole Cream [Lotrimin Cream] 1 applic TOPICAL BID each 02/28/22 [Rx] Nicotine 14Mg/24Hr Patch [Habitrol] 1 patch TRANSDERM DAILY 14 Days patch 02/28/22 [Rx] Sertraline [Zoloft] 50 mg PO DAILY 30 Days tab 02/28/22 [Rx] diphenhydrAMINE [Benadryl] 25 mg PO HS 30 Days cap 02/28/22 [Rx] Follow up Appointment(s)/Referral(s): Nonstaff,Physician [Primary Care Provider] - 1-2 days Activity/Diet/Wound Care/Special Instructions: Avoid the use of street drugs and alcohol. Take all prescriptions as prescribed. When you are in need of refills on your medications, please contact your medical provider and/or outpatient psychiatrist to have this done. Please go to scheduled outpatient appointment for aftercare treatment. If symptoms return or become worse, call the crisis line at and/or go to the nearest emergency room for evaluation. Discharge Disposition: HOME SELF-CARE
== END 2022-02-28 11:32 | disposition home or self-care (01) | DRG 885 ==
LOC: EC 18:52 → 3MHU 22:59
PROVIDERS: ADMIT Psychiatry & Neurology Psychiatry; ATTEND Psychiatry & Neurology Psychiatry
DX: F33.2 Major depressive disorder, recurrent severe without psychotic features (principal); Z68.41 Body mass index [BMI] 40.0-44.9, adult; E66.3 Overweight; F41.1 Generalized anxiety disorder; G47.00 Insomnia, unspecified; Z20.822 Contact with and (suspected) exposure to COVID-19; Z28.310 Unvaccinated for COVID-19; Z98.891 History of uterine scar from previous surgery; Z87.19 Personal history of other diseases of the digestive system; Z90.49 Acquired absence of other specified parts of digestive tract; Z56.0 Unemployment, unspecified; Z65.3 Problems related to other legal circumstances; Z63.72 Alcoholism and drug addiction in family; Z88.1 Allergy status to other antibiotic agents; Z88.2 Allergy status to sulfonamides; Z88.8 Allergy status to other drugs, medicaments and biological substances; Z71.41 Alcohol abuse counseling and surveillance of alcoholic; Z71.51 Drug abuse counseling and surveillance of drug abuser; Z81.8 Family history of other mental and behavioral disorders; Z81.1 Family history of alcohol abuse and dependence
CPT/HCPCS: 80053; 80061; 80306; 81001; 81025; 82248; 83036; 84443; 85025; 87635; 99285

== ENCOUNTER 2022-05-03 19:04 | Emergency (ER) | payer OTHER ==
[2022-05-03 19:09] VITALS: BP 124/77; PULSE 87; RESP 16; TEMP 97.9
[2022-05-03 20:12] LABS: HCT 42.1 % (34.0-46.0); HGB 13.7 gm/dL (11.4-16.0); MCH 28.4 pg (25.0-35.0); MCHC 32.4 g/dL (31.0-37.0); MCV 87.6 fL (80.0-100.0); Platelet Count 354 k/uL (150-450); RBC 4.81 m/uL (3.80-5.40); RDW 12.7 % (11.5-15.5); WBC 9.1 k/uL (3.8-10.6)
[2022-05-03 20:18] LABS: Appearance,Urine Cloudy (Clear); Bacteria,Urine Rare /hpf; Bilirubin,Urine Negative (Negative); Blood,Urine Negative (Negative); Color,Urine Light Yellow; Glucose,Urine (UA) Negative (Negative); Ketones,Urine Negative (Negative); Leukocyte Esterase,Urine Large (Negative); Mucus,Urine Rare /hpf; Nitrite,Urine Negative (Negative); PH, Urine 6.5 (5.0-8.0); Protein,Urine Negative (Negative); RBC,Urine 2 /hpf (0-5); Specific Gravity,Urine 1.014 (1.001-1.035); Squamous Epithelial Cell,Urine 6 /hpf (0-4); Urobilinogen,Urine <2.0 mg/dL (<2.0); WBC,Urine 3 /hpf (0-5)
[2022-05-03 20:20] LABS: ALT 18 U/L (4-34); AST 19 U/L (14-36); African American GFR (CKD) >90 (>60 ml/min/1.73 sqM); Albumin 4.4 g/dL (3.5-5.0); Alkaline Phosphatase 56 U/L (38-126); Anion Gap 14 mmol/L; Blood Urea Nitrogen 8 mg/dL (7-17); Carbon Dioxide 22 mmol/L (22-30); Chloride 103 mmol/L (98-107); Glucose 96 mg/dL (74-99); Non-African American GFR(CKD) >90 (>60 ml/min/1.73 sqM); Potassium 3.8 mmol/L (3.5-5.1); Sodium 139 mmol/L (137-145); Total Bilirubin 0.2 mg/dL (0.2-1.3); Total Protein 6.9 g/dL (6.3-8.2)
[2022-05-03 20:37] LABS: HCG,Quantitative Serum <2.4 mIU/mL
--- NOTE | 2022-05-03 21:04 | ED ---
Recheck HPI - General Chief Complaint: Recheck/Abnormal Lab/Rx Stated Complaint: early concerns Time Seen by Provider: 05/03/22 19:41 Source: patient, RN notes reviewed Mode of arrival: ambulatory Limitations: no limitations - History of Present Illness Initial Comments: This is a pleasant 21-year-old female who is A3. Patient presents to the emergency prompt today stating that her last Mensa. Was on March 22. Patient took a test today and it was positive. Patient has no pain, no bleeding, denying any other symptoms. She called her nurse slide maker and was instructed to come here to get a vitamin and blood testing as she is high risk for miscarriage. Patient denying any dysuria or vaginal discharge. No headache, no fever or chills, no changes in vision or hearing, no sore throat or difficulty with speech, no neck pain, no chest pain or shortness of breath, no abdominal pain, no nausea or vomiting, no changes in urination or bowel movements, no numbness or tingling, no extremity pain, no skin rashes or lesions. Past medical, surgical, social, and family history reviewed. - Related Data Previous Rx's Medication Instructions Recorded Clotrimazole Cream [Lotrimin Cream] 1 applic TOPICAL BID each 02/28/22 Nicotine 14Mg/24Hr Patch [Habitrol] 1 patch TRANSDERM DAILY 14 Days 02/28/22 patch Sertraline [Zoloft] 50 mg PO DAILY 30 Days tab 02/28/22 diphenhydrAMINE [Benadryl] 25 mg PO HS 30 Days cap 02/28/22 Sny-Dsyr-Iytpp Acid 1 each PO DAILY #100 cap 05/03/22 [-U Capsule (formulary)] Allergies Allergy/AdvReac Type Severity Reaction Status Date / Time levofloxacin [From Levaquin] Allergy Rapid Verified 05/03/22 19:09 Heart Rate sulfamethoxazole Allergy Unknown Verified 05/03/22 19:09 [From Bactrim] Childhood trimethoprim [From Bactrim] Allergy Unknown Verified 05/03/22 19:09 Childhood methylphenidate AdvReac Rapid Verified 05/03/22 19:09 [From Concerta] Heart Rate Review of Systems ROS Statement: Those systems with pertinent positive or pertinent negative responses have been documented in the HPI. ROS Other: All systems not noted in ROS Statement are negative. Past Medical History Past Medical History: No Reported History History of Any Multi-Drug Resistant Organisms: None Reported Past Surgical History: Section, Cholecystectomy Additional Past Surgical History / Comment(s): c section x 2 and reconstructive surgery on her uterus. Past Psychological History: No Psychological Hx Reported, ADD/ADHD, Anxiety, Depression Smoking Status: Never smoker Past Alcohol Use History: None Reported Past Drug Use History: None Reported - Past Family History Mother Family Medical History: Cancer General Exam Limitations: no limitations General appearance: alert, in no apparent distress Head exam: Present: atraumatic, normocephalic, normal inspection Eye exam: Present: normal appearance, PERRL, EOMI. Absent: scleral icterus, conjunctival injection, periorbital swelling ENT exam: Present: normal exam, mucous membranes moist Neck exam: Present: normal inspection. Absent: tenderness, meningismus, lymphadenopathy Respiratory exam: Present: normal lung sounds bilaterally. Absent: respiratory distress, wheezes, rales, rhonchi, stridor Cardiovascular Exam: Present: regular rate, normal rhythm, normal heart sounds. Absent: systolic murmur, diastolic murmur, rubs, gallop, clicks GI/Abdominal exam: Present: soft, normal bowel sounds. Absent: distended, tenderness, guarding, rebound, rigid Extremities exam: Present: normal inspection, full ROM, normal capillary refill. Absent: tenderness, pedal edema, joint swelling, calf tenderness Back exam: Present: normal inspection Neurological exam: Present: alert, oriented X3, CN II-XII intact Psychiatric exam: Present: normal affect, normal mood Skin exam: Present: warm, dry, intact, normal color. Absent: rash Course Vital Signs 05/03/22 19:06 Temperature 97.9 F Pulse Rate 87 Respiratory 16 Rate Blood Pressure 124/77 O2 Sat by Pulse 99 Oximetry Medical Decision Making - Medical Decision Making Patient's quantitative beta hCG was less than 2.4 here today. I suspect the patient had a false positive test. I did discuss all findings with t keri patient. I told the patient to follow-up with her surveyor for further evaluation. I suppose it is possible the patient had an early miscarriage. However negative beta hCG should be much more sensitive than urine test. Patient was asymptomatic. I did decide to go ahead and prescribe vitamin as it sounds like the patient is attempting to get . Patient was told to return to the ER for any signs or symptoms worsen. Told to return immediately if any other problems arise. All questions answered. Treatment plan discussed. Patient in agreement Every effort has been made to ensure accuracy of this dictation. However, due to the limitations of electronic medical records and dictation devices, errors in charting still occur. Supervising Dr. Stark - Lab Data Result diagrams: 05/03/22 20:00 05/03/22 20:00 Lab Results 05/03/22 05/03/22 05/03/22 Range/Units 19:55 19:59 20:00 WBC 9.1 (3.8-10.6) k/uL RBC 4.81 (3.80-5.40) m/uL Hgb 13.7 (11.4-16.0) gm/dL Hct 42.1 (34.0-46.0) % MCV 87.6 (80.0-100.0) fL MCH 28.4 (25.0-35.0) pg MCHC 32.4 (31.0-37.0) g/dL RDW 12.7 (11.5-15.5) % Plt Count 354 (150-450) k/uL MPV 7.0 Sodium (137-145) mmol/L Potassium (3.5-5.1) mmol/L Chloride (98-107) mmol/L Carbon Dioxide (22-30) mmol/L Anion Gap mmol/L BUN (7-17) mg/dL Creatinine (0.52-1.04) mg/dL Est GFR (CKD-EPI)AfAm (>60 ml/min/1.73 sqM) Est GFR (CKD-EPI)NonAf (>60 ml/min/1.73 sqM) Glucose (74-99) mg/dL Calcium (8.4-10.2) mg/dL Total Bilirubin (0.2-1.3) mg/dL AST (14-36) U/L ALT (4-34) U/L Alkaline Phosphatase (38-126) U/L Total Protein (6.3-8.2) g/dL Albumin (3.5-5.0) g/dL HCG, Quant mIU/mL Urine Color Light Yellow Urine Appearance Cloudy H (Clear) Urine pH 6.5 (5.0-8.0) Ur Specific [place] 1.014 (1.001-1.035) Urine Protein Negative (Negative) Urine Glucose (UA) Negative (Negative) Urine Ketones Negative (Negative) Urine Blood Negative (Negative) Urine Nitrite Negative (Negative) Urine Bilirubin Negative (Negative) Urine Urobilinogen <2.0 (<2.0) mg/dL Ur Leukocyte Esterase Large H (Negative) Urine RBC 2 (0-5) /hpf Urine WBC 3 (0-5) /hpf Ur Squamous Epith Cells 6 H (0-4) /hpf Urine Bacteria Rare H (None) /hpf Urine Mucus Rare H (None) /hpf Blood Type Blood Type Confirm A Positive Blood Type Recheck Bld Type Recheck Status Antibody Screen Spec Expiration Date 05/03/22 05/03/22 Range/Units 20:00 20:00 WBC (3.8-10.6) k/uL RBC (3.80-5.40) m/uL Hgb (11.4-16.0) gm/dL Hct (34.0-46.0) % MCV (80.0-100.0) fL MCH (25.0-35.0) pg MCHC (31.0-37.0) g/dL RDW (11.5-15.5) % Plt Count (150-450) k/uL MPV Sodium 139 (137-145) mmol/L Potassium 3.8 (3.5-5.1) mmol/L Chloride 103 (98-107) mmol/L Carbon Dioxide 22 (22-30) mmol/L Anion Gap 14 mmol/L BUN 8 (7-17) mg/dL Creatinine 0.58 (0.52-1.04) mg/dL Est GFR (CKD-EPI)AfAm >90 (>60 ml/min/1.73 sqM) Est GFR (CKD-EPI)NonAf >90 (>60 ml/min/1.73 sqM) Glucose 96 (74-99) mg/dL Calcium 9.0 (8.4-10.2) mg/dL Total Bilirubin 0.2 (0.2-1.3) mg/dL AST 19 (14-36) U/L ALT 18 (4-34) U/L Alkaline Phosphatase 56 (38-126) U/L Total Protein 6.9 (6.3-8.2) g/dL Albumin 4.4 (3.5-5.0) g/dL HCG, Quant <2.4 mIU/mL Urine Color Urine Appearance (Clear) Urine pH (5.0-8.0) Ur Specific [place] (1.001-1.035) Urine Protein (Negative) Urine Glucose (UA) (Negative) Urine Ketones (Negative) Urine Blood (Negative) Urine Nitrite (Negative) Urine Bilirubin (Negative) Urine Urobilinogen (<2.0) mg/dL Ur Leukocyte Esterase (Negative) Urine RBC (0-5) /hpf Urine WBC (0-5) /hpf Ur Squamous Epith Cells (0-4) /hpf Urine Bacteria (None) /hpf Urine Mucus (None) /hpf Blood Type A Positive Blood Type Confirm Blood Type Recheck No Previous Record Bld Type Recheck Status CABO Indicated Antibody Screen NEGATIVE Spec Expiration Date 05/06/20222299 Disposition Clinical Impression: examination or test, unconfirmed, Encounter for medication refill Disposition: HOME SELF-CARE Condition: Good Additional Instructions: Follow-up with your regular physician as directed. Return to the ER immediately if any symptoms worsen, new symptoms arise, or any other problems develop. Follow-up with your regular physician for reevaluation. Prescriptions: Jzc-[id number]-Kryvf Acid [-U Capsule (formulary)] 1 each PO DAILY #100 cap Is patient prescribed a controlled substance at d/c from ED?: No Referrals: Nonstaff,Physician [Primary Care Provider] - 1-2 days Time of Disposition: 21:03
== END 2022-05-03 21:24 | disposition home or self-care (01) ==
LOC: EC 19:04
DX: Z32.02 Encounter for pregnancy test, result negative (principal); Z76.0 Encounter for issue of repeat prescription; Z88.1 Allergy status to other antibiotic agents; Z88.2 Allergy status to sulfonamides; Z88.8 Allergy status to other drugs, medicaments and biological substances
CPT/HCPCS: 36415; 80053; 81001; 84702; 85027; 86850; 86900; 86901; 99282